=== PATIENT | female | born 1980 | race Caucasian/White ===

== ENCOUNTER 2019-04-14 20:44 | Emergency (ER) | payer BC ==
[2019-04-14 20:51] VITALS: BP 158/98; PULSE 69; RESP 18; TEMP 98.3
--- NOTE | 2019-04-14 21:22 | ED ---
General Adult HPI - General Chief complaint: Skin/Abscess/Foreign Body Stated complaint: Breast swelling Time Seen by Provider: 04/14/19 21:05 Source: patient Mode of arrival: ambulatory Limitations: no limitations - History of Present Illness Initial comments: Patient is a 38-year-old woman who complains of having an increase in size of a cyst that was noted in her right breast. Patient states that this was first noted proximally 2 months ago. She had an ultrasound performed at that time that she reports showed a cyst with fluid. Onset/Timin -: month(s) Location: chest (Right breast) Radiation: non-radiation Quality: dull Consistency: constant Improves with: none Worsens with: none Associated Symptoms: denies other symptoms Treatments Prior to Arrival: none - Related Data Previous Rx's Medication Instructions Recorded Clindamycin [Cleocin] 150 mg PO Q6H #28 capsule 04/14/19 Allergies Allergy/AdvReac Type Severity Reaction Status Date / Time amoxicillin [From Augmentin] Allergy Rash/Hives Verified 04/14/19 20:51 ciprofloxacin [From Cipro] Allergy Rash/Hives Verified 04/14/19 20:51 clavulanic acid Allergy Rash/Hives Verified 04/14/19 20:51 [From Augmentin] Sulfa (Sulfonamide Allergy Rash/Hives Verified 04/14/19 20:51 Antibiotics) Review of Systems ROS Statement: Those systems with pertinent positive or pertinent negative responses have been documented in the HPI. ROS Other: All systems not noted in ROS Statement are negative. Constitutional: Denies: fever, chills Respiratory: Denies: dyspnea Cardiovascular: Denies: chest pain, palpitations, edema Skin: Denies: rash Past Medical History Additional Past Medical History / Comment(s): cyst on right breast History of Any Multi-Drug Resistant Organisms: None Reported Past Surgical History: Breast Surgery Past Psychological History: No Psychological Hx Reported Smoking Status: Never smoker Past Alcohol Use History: Occasional Past Drug Use History: None Reported General Exam Limitations: no limitations General appearance: alert, in no apparent distress Respiratory exam: Present: normal lung sounds bilaterally, other (The right breast exam reveals that in the upper outer quadrant of the right breast there is approximately 6 cm breast mass. Mass is firm but feels regular. No exam findings suggestive of infection, including no erythema, warmth. The mass is deep. There are no associated lymph nodes palpable in the axilla. ROSARIO Morgan present for exam.). Absent: respiratory distress, wheezes, rales, rhonchi, stridor Cardiovascular Exam: Present: regular rate, normal rhythm, normal heart sounds. Absent: systolic murmur, diastolic murmur, rubs, gallop Course Vital Signs 04/14/19 20:48 Temperature 98.3 F Pulse Rate 69 Respiratory 18 Rate Blood Pressure 158/98 O2 Sat by Pulse 98 Oximetry Medical Decision Making - Medical Decision Making I did discuss the case with Dr. Estes, who is the surgeon on-call. She states that at this point without any indications of infection, that the patient best managed by having ultrasound and being seen in the clinic. As ultrasound is currently not in the hospital, I discussed with the patient whether she would like to wait well. Logistics Analytics Manager was paged in, but she would prefer to schedule as outpatient and following the clinic. Discussed appropriate follow-up and further care as well as return parameters. I did provide prescription for clindamycin should the patient develop any signs or symptoms of infection, she is instructed to start this. Disposition Clinical Impression: Breast mass, right Disposition: HOME SELF-CARE Condition: Good Instructions (If sedation given, give patient instructions): Breast Mass (ED) Prescriptions: Clindamycin [Cleocin] 150 mg PO Q6H #28 capsule Is patient prescribed a controlled substance at d/c from ED?: No Referrals: Jerardo Arce MD [Primary Care Provider] - 1-2 days Sita Estes DO [Doctor of Osteopathic Medicine] - 1-2 days
== END 2019-04-14 22:01 | disposition home or self-care (01) ==
LOC: EC 20:44 → SUPCPDRO 20:44 → EC 22:01
DX: N63.0 Unspecified lump in unspecified breast (principal); Z88.0 Allergy status to penicillin; Z88.1 Allergy status to other antibiotic agents; Z88.2 Allergy status to sulfonamides
CPT/HCPCS: 99283

== ENCOUNTER → 2019-04-20 | Outpatient (CLI) | payer BC ==
--- NOTE | 2019-04-20 09:04 | USB ---
Reason for exam: clinical finding. History: Patient is nulliparous. Retro-pectoral saline implants in both breasts, 2010. Took hormonal contraceptives for 14 years. Indicated problem(s): palpable abnormality in the right breast. Physical Findings: Nurse Summary: right breast palpable 10 o'clock, movable, tender 2 x 3cm, bilateral saline implants (nurse ts). US Breast RT Right complete breast ultrasound includes all four quadrants, the retroareolar region and axilla. Finding demonstrates a 4 x 3 x 4mm oval, cystic lesion at 6 o'clock, simple cyst and a 32 x 25 x 34cm oval, cystic lesion at 10 o'clock BB, thick wall. Patient has pain. These results were verbally communicated with the patient and result sheet given to the patient on 04/20/19. ASSESSMENT: Probably benign, BI-RAD 3 RECOMMENDATION: Aspiration of the right breast. (FNA because of pain from cyst) Patient states she does not want the cyst aspiration done at this time because she has noticed area has become smaller and not so bothersome, patient informed that if still interested in cyst aspiration to contact primary physician.
== END | disposition home or self-care (01) ==
LOC: RADUSWWP 07:51
PROVIDERS: ATTEND Emergency Medicine
DX: N63.10 Unspecified lump in the right breast, unspecified quadrant (principal)

== ENCOUNTER → 2019-09-13 | Outpatient (CLI) | payer BC ==
--- NOTE | 2019-09-13 14:19 | MM ---
Reason for exam: follow-up at short interval from prior study. Last mammogram was performed 7 months ago. History: Patient is nulliparous. Retro-pectoral saline implants in both breasts, 2010. Took hormonal contraceptives for 14 years. Physical Findings: Nurse Summary: 1cm nodule in the left breast at 3 o'clock (nurse mj). MG 3D Diag Mammo Imp W/Cad LT CC, MLO, and ID view(s) were taken of the left breast. Prior study comparison: February 08, 2019, bilateral MG 3d diag mammo w/cad JEVON. The breast tissue is heterogeneously dense. This may lower the sensitivity of mammography. Stable benign calcifications. There is no discrete abnormality. No significant new findings when compared with previous films. These results were verbally communicated with the patient and result sheet given to the patient on 09/13/19. ASSESSMENT: Incomplete: need additional imaging evaluation, BI-RAD 0 RECOMMENDATION: Ultrasound of the left breast.
--- NOTE | 2019-09-13 14:21 | USB ---
Reason for exam: additional evaluation requested from abnormal screening. History: Patient is nulliparous. Retro-pectoral saline implants in both breasts, 2010. Took hormonal contraceptives for 14 years. US Breast Limited LT Left limited breast ultrasound including focal area of concern, retroareolar and axilla demonstrates a 0.5 x 0.2 x 0.4cm cystic lesion at 1 o'clock, a 0.4 x 0.2 x 0.4cm lesion at 2 o'clock, a 0.5 x 0.3 x 0.4cm lesion at 2 o'clock, a 0.4 x 0.3 x 0.3cm lesion at 2 o'clock and a 0.3 x 0.2 x 0.3cm lesion too small to characterize at 3 o'clock. These results were verbally communicated with the patient and result sheet given to the patient on 09/13/19. ASSESSMENT: Benign, BI-RAD 2 RECOMMENDATION: Routine screening mammogram of both breasts in 6 months. Back on schedule.
== END | disposition home or self-care (01) ==
LOC: RADMAMWWP 13:05
PROVIDERS: ATTEND Family Medicine
DX: R92.8 Other abnormal and inconclusive findings on diagnostic imaging of breast (principal)
CPT/HCPCS: 77061; 77065

== ENCOUNTER → 2020-08-29 | Outpatient (CLI) | payer BC ==
--- NOTE | 2020-09-01 11:08 | MM ---
Reason for exam: clinical finding. Last mammogram was performed 1 year ago. History: Patient is nulliparous. Retro-pectoral saline implants in both breasts, 2010. Took hormonal contraceptives for 14 years. Physical Findings: Nurse Summary: 0.25cm nodule in the left breast at 6 o'clock (nurse jermaine). MG 3D Diag Mammo Imp W/Cad JEVON Bilateral CC, MLO, and ID view(s) were taken. Prior study comparison: September 13, 2019, left breast MG 3d diag mammo imp w/cad LT. February 08, 2019, bilateral MG 3d diag mammo w/cad JEVON. The breast tissue is extremely dense which could obscure a lesion on mammography. Finding: There is a 8 mm circumscribed round mass in the outer quadrant, posterior middle position of the right breast. Bilateral subpectoral implants redemonstrated. These results were verbally communicated with the patient and result sheet given to the patient on 08/29/20. ASSESSMENT: Incomplete: need additional imaging evaluation, BI-RAD 0 RECOMMENDATION: Ultrasound of both breasts.
--- NOTE | 2020-09-01 11:10 | USB ---
Reason for exam: additional evaluation requested from abnormal screening. History: Patient is nulliparous. Retro-pectoral saline implants in both breasts, 2010. Took hormonal contraceptives for 14 years. US Breast Limited BILAT Right limited breast ultrasound including focal area of concern, retroareolar and axilla demonstrates a 0.6 x 0.3 x 0.4cm cystic lesion at 6 o'clock and a 0.6 x 0.4 x 0.5cm cystic cluster at 10 o'clock. Overall fibrocystic change. Left limited breast ultrasound including focal area of concern, retroareolar and axilla demonstrates no cystic or solid lesion seen. These results were verbally communicated with the patient and result sheet given to the patient on 08/29/20. ASSESSMENT: Benign, BI-RAD 2 RECOMMENDATION: Routine screening mammogram of both breasts in 1 year. Manage on a clinical basis with regard to left palpable.
== END | disposition home or self-care (01) ==
LOC: RADMAMWWP 13:11
PROVIDERS: ATTEND Nurse Practitioner Family
DX: N63.20 Unspecified lump in the left breast, unspecified quadrant (principal); N63.10 Unspecified lump in the right breast, unspecified quadrant; R92.8 Other abnormal and inconclusive findings on diagnostic imaging of breast; Z98.890 Other specified postprocedural states
CPT/HCPCS: 77062; 77066

== ENCOUNTER → 2023-08-30 | Outpatient (CLI) | payer BC ==
[2023-08-30 13:40] VITALS: BP 117/79; PULSE 86; RESP 16; TEMP 97.8
--- NOTE | 2023-08-30 14:24 | P.HPOB ---
History of Present Illness H&P Date: 08/30/23 Chief Complaint: The patient is here for her routine gynecologic exam This is a 43-year-old G0 with an LMP of 08/09/2023. The patient is here to establish with this office. It has been about 20 half years since her last pelvic exam. She has a Kyleena IUD in place since 08/13/2019. The patient states she does not want to get and does not plan on having kids. She states she has felt a small lump next to to her cervix and the back of the vagina she also has noticed a small cyst near her anus. She is otherwise without gynecologic complaints. She has had extremely light, and almost nonexistent periods, with the IUD. Review of Systems She has lost about 20 pounds and has been on Ozempic for weight loss. She denies respiratory or GI problems. Cardiac: She has felt infrequent palpitations. 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 History of Any Multi-Drug Resistant Organisms: None Reported Past Surgical History: Breast Surgery Additional Past Surgical History / Comment(s): BILATERAL IMPLANTS 2009(saline) Past Anesthesia/Blood Transfusion Reactions: Unable to Obtain Past Psychological History: No Psychological Hx Reported Smoking Status: Never smoker Past Alcohol Use History: Occasional Past Drug Use History: None Reported Additional History: She has been since 2011 and this is her second marriage. 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. She is a Pentecostalism. - Past Family History Mother Family Medical History: Liver Disease Additional Family Medical History / Comment(s): Hepatitis C. of complications with ARDS. Maternal grandmother had pancreatic cancer. Father Additional Family Medical History / Comment(s): from an accidental drowning in his 30s. Medications and Allergies Home Medications Medication Instructions Recorded Confirmed Type Semaglutide [Ozempic] 2 mg INJ WEEKLY 08/30/23 08/30/23 History Allergies Allergy/AdvReac Type Severity Reaction Status Date / Time amoxicillin [From Augmentin] Allergy Rash/Hives Verified 08/30/23 13:17 ciprofloxacin [From Cipro] Allergy Rash/Hives Verified 08/30/23 13:17 clavulanic acid Allergy Rash/Hives Verified 08/30/23 13:17 [From Augmentin] clindamycin Allergy Itching Unverified 08/30/23 13:18 Penicillins Allergy Rash/Hives Unverified 08/30/23 13:18 Sulfa (Sulfonamide Allergy Rash/Hives Verified 08/30/23 13:17 Antibiotics) Exam Vital Signs Temp Pulse Resp BP Pulse Ox 08/30/23 13:20 97.8 F 86 16 117/79 97 Intake and Output 08/29/23 08/30/23 08/30/23 22:59 06:59 14:59 Other: Weight 71.214 kg Height 5 feet 7 inches, weight 157 pounds, BMI 24.6. This is a well-developed well-nourished female who is alert and oriented times 3 in no acute distress. HEENT: Within normal limits. NECK: Supple without mass or thyromegaly. CHEST AND LUNGS: Clear to auscultation. HEART: Regular rate and rhythm. BREASTS: Are without mass or discharge. Consistent with bilateral implants. AXILLARY EXAM: Negative for adenopathy. BACK: Negative for CVA tenderness. ABDOMEN: Soft, nontender, without palpable masses. PELVIC EXAM: Normal external genitalia. Cervix and vagina appear normal with the IUD string protruding from the cervix by about 1 cm. There is a small 0.5 cm inclusion cyst palpable adjacent to the cervix in the left vaginal fornix. This is nontender. There is no unusual discharge. There is no evidence of prolapse. The uterus is midposition, nongravid size and nontender. There are no palpable adnexal masses or tenderness. RECTAL EXAM: There is a 0.5 cm inclusion cyst at the right perianal region which is nontender and noninflamed. Rectovaginal exam is negative for mass or tenderness and is negative for occult blood. EXTREMITIES: Nontender. IMPRESSION: 1. 43-year-old female with a Kyleena IUD in place since 920 01/20/2019 with extremely light menstrual periods with this IUD. 2. Small vaginal inclusion cyst measuring 0.5 cm which is noticeable on exam and was noticed by the patient which is otherwise asymptomatic. This seems very benign and not suspicious in nature. 3. Perianal inclusion cyst on the right side measuring 0.5 cm noticed by the patient which also seems completely benign. PLAN: 1. Pap smear cotest was performed. 2. Self breast awareness was discussed with the patient. We have also discussed symptoms associated with inflammatory breast cancer. 3. The patient states she had a screening MRI done on 08/20/2023 in [place] as ordered by a different care provider. She states she did this in place of a screening mammogram and chose to take For this. She states this was unremarkable. I have recommended yearly mammograms and I don't feel an MRI is necessary or warranted on a regular basis. She states she will return in 1 year and have a mammogram done at that time. 4. Osteoporosis prevention was discussed. I have stressed the importance of adequate calcium, vitamin D and regular exercise. Recommended amounts of calcium and vitamin D were also discussed. 5. We have discussed the inclusion cysts noticed in the left vaginal fornix and in the perianal region. She was advised to check these periodically and if there are significant changes, she was instructed to return for a reevaluation. 6. She understands the Kyleena IUD has limited effectiveness and is approved for 5 years use. She should have this removed and replaced by 08/13/2024. She understands that I am no longer placing IUDs and she can call when she would lik e to make an appointment for this and we can help her to arrange for this. 7. She was advised to return in one year for her annual well woman exam and as needed.
== END ==
LOC: WWCWWP 13:12
PROVIDERS: ATTEND Obstetrics & Gynecology
DX: N89.8 Other specified noninflammatory disorders of vagina (principal); Z97.5 Presence of (intrauterine) contraceptive device; Z88.0 Allergy status to penicillin; Z88.1 Allergy status to other antibiotic agents; Z88.2 Allergy status to sulfonamides